=== PATIENT | male | born 1945 | race Caucasian/White ===

== ENCOUNTER 2019-04-10 09:43 | Day surgery (SDC) | payer OTHER | END 2019-04-10 22:37 | disposition home or self-care (01) | LOC: US 09:43 | DX: J90 Pleural effusion, not elsewhere classified (principal); C34.90 Malignant neoplasm of unspecified part of unspecified bronchus or lung | CPT/HCPCS: 32555; 71045 ==

== ENCOUNTER 2019-04-24 11:03 | Emergency (ER) | payer OTHER ==
[~2019-04-24] VITALS: Ht 180.3 cm; Wt 78.9 kg
[2019-04-24] MEDS ORDERED: ALBU90OI INH (11:24)
[2019-04-24] MEDS ORDERED: FINA5 PO (11:25)
[2019-04-24] MEDS ORDERED: GABA100 PO ×2 (11:25)
[2019-04-24] MEDS ORDERED: THERA1 EACH PO (11:26)
[2019-04-24] MEDS ORDERED: LISI5 PO (11:26)
[2019-04-24] MEDS ORDERED: METF500 PO (11:27)
[2019-04-24] MEDS ORDERED: STRIVERDI RESPIM4 GM INH (11:27)
[2019-04-24] MEDS ORDERED: TAMS.4ER PO (11:27)
[2019-04-24] MEDS ORDERED: TRAZ100 PO (11:28)
--- NOTE | 2019-04-24 19:22 | NUR ---
Called to meet with patient in ER. Pt From [place] with increased shortness of breath. Review with physicians and staff plan of care. Dr Galarza met with patient and his and carefully reviewed his needs. Met with patient and his . They reviewed that he is now getting his primary care at the [place]. He is recieving treatment from Doctor Mckeon. Plan is to continue care as he can tolerate. Review of symptoms. Pt denies headaches complains of great fatigue. He is not coughing with foof but swallows carefully due to fatiue and dyspnea. He states he has been wearing his wifes oxygen. pt has no appetite and in the past few days had had minimum intake and out put. Pt having difficulty voiding. History of prostate disease. He has obtained some catheters from his neighbor and has been cathing himself as needed. he dinies loose stools and states some mild constipation. He is able to ambulate but mostly stays in his wheelchair. He denies falls or balance issues some mild dizziness. Spoke with healthcare interpreter about oygen. They contacted regina. Spoke with Dr Gómez office. They can see patient tomorrow and do oxygen study. [facility] called and information sent. Requested home health order for catheter managment and disease managemet. Notified healthcare interpreter that it jaylan have to come from [place] care team. Pt states heis 20% service connected for hearing loss. Reviewed safety strategies with patient and his . Review strategies for tolearting intake. They are agreeable to home health and do not have preferance of company. Reviewed safety and fall precautions and when to call for help. Sopportiv conversation with his who is exhausted and distraught. Gave them our office number for support. Will follow up on orders.
--- NOTE | 2019-04-25 15:42 | NUR ---
follow up Mr. Liu made his oncology appointment. Follow up with care managers home health ordered. [facility] called last evening will make contact for oxygen care if needed.
== END 2019-04-24 17:10 | disposition home or self-care (01) ==
LOC: ER 11:03
DX: J90 Pleural effusion, not elsewhere classified (principal); C34.90 Malignant neoplasm of unspecified part of unspecified bronchus or lung; R00.0 Tachycardia, unspecified; E11.9 Type 2 diabetes mellitus without complications; F32.9 Major depressive disorder, single episode, unspecified; F03.90 Unspecified dementia, unspecified severity, without behavioral disturbance, psychotic disturbance, mood disturbance, and anxiety; J44.9 Chronic obstructive pulmonary disease, unspecified; Z87.891 Personal history of nicotine dependence; Z86.73 Personal history of transient ischemic attack (TIA), and cerebral infarction without residual deficits; Z88.8 Allergy status to other drugs, medicaments and biological substances; Z79.84 Long term (current) use of oral hypoglycemic drugs; Z79.899 Other long term (current) drug therapy
CPT/HCPCS: 32555; 71045; 96360; 99285-25; J7030

== ENCOUNTER 2019-05-03 14:54 | Day surgery (SDC) | payer OTHER ==
[~2019-05-03 14:54] MED LIST: ALBU90OI INH; FINA5 PO; GABA100 PO; LISI5 PO; METF500 PO; STRIVERDI RESPIM4 GM INH; TAMS.4ER PO; THERA1 EACH PO; TRAZ100 PO
== END 2019-05-04 00:07 | disposition home or self-care (01) ==
LOC: US 14:54
DX: C34.11 Malignant neoplasm of upper lobe, right bronchus or lung (principal); J91.0 Malignant pleural effusion
CPT/HCPCS: 32555; 71045

== ENCOUNTER 2019-06-14 13:15 | Day surgery (SDC) | payer OTHER ==
[2019-06-14 14:13] LABS: BASOPHILS ABSOLUTE AUTO 0.08 K/mm3 (0.00-0.23); BASOPHILS PERCENT AUTO 0 % (0-2); EOSINOPHILS ABSOLUTE AUTO 0.04 K/mm3 (0.00-0.68); EOSINOPHILS PERCENT AUTO 0 % (0-6); Hematocrit 25.2 % (37.0-53.0); Hemoglobin 7.9 g/dL (13.5-17.5); IMMATURE GRAN ABSOLUTE AUTO 0.74 K/mm3 (0.00-0.10); IMMATURE GRAN PERCENT AUTO 4 % (0-1); LYMPHOCYTES ABSOLUTE AUTO 0.86 K/mm3 (0.84-5.20); LYMPHOCYTES PERCENT AUTO 5 % (21-46); MONOCYTES ABSOLUTE AUTO 1.71 K/mm3 (0.16-1.47); MONOCYTES PERCENT AUTO 9 % (4-13); Mean Corpuscular HGB 29.6 pg (26.0-34.0); Mean Corpuscular HGB Conc 31.3 g/dL (31.5-36.5); Mean Corpuscular Volume 94 fL (80-100); Mean Platelet Volume 9.5 fL (9.1-12.4); NEUTROPHILS PERCENT AUTO 82 % (41-73); Platelet Count 178 K/mm3 (150-400); RDW Standard Deviation 49.2 fL (35.1-46.3); Red Blood Cell Count 2.67 M/mm3 (4.30-5.90); White Blood Cell Count 19.13 K/mm3 (4.00-11.30)
[2019-06-14 14:25] LABS: International Normalized Ratio 1.03; Prothrombin Time Results 10.9 Sec (9.7-11.5)
[2019-06-14 14:28] LABS: Alanine Aminotransfer (ALT/SGP 16 U/L (12-78); Albumin, Blood 2.8 g/dL (3.4-5.0); Albumin/Globulin Ratio 0.6 (0.8-1.8); Alk Phos 218 U/L (50-136); Anion Gap 0 mmol/L (6-16); Aspartate Aminotrans (AST/SGOT 25 U/L (12-37); Bilirubin, Total 0.3 mg/dL (0.1-1.0); Blood Urea Nitrogen 11 mg/dL (8-24); CO2, Blood 39 mmol/L (21-32); Calcium, Blood 8.9 mg/dL (8.5-10.1); Chloride, Blood 96 mmol/L (98-108); Creatinine, Blood 0.69 mg/dL (0.60-1.20); Globulin, Blood 4.6 g/dL (2.2-4.0); Glomerular Filtration Rate >60 (60-); Glucose, Blood 114 mg/dL (70-99); Potassium, Blood 5.1 mmol/L (3.5-5.5); Sodium, Blood 135 mmol/L (136-145); Total Protein, Blood 7.4 g/dL (6.4-8.2)
== END 2019-06-14 23:38 | disposition home or self-care (01) ==
LOC: US 13:15 → LAB 13:15 → US 15:00
PROVIDERS: Internal Medicine Hematology & Oncology
DX: J90 Pleural effusion, not elsewhere classified (principal); C34.11 Malignant neoplasm of upper lobe, right bronchus or lung; Z79.01 Long term (current) use of anticoagulants
CPT/HCPCS: 32555; 36415; 71045; 80053; 85025; 85610; 85730

== ENCOUNTER 2019-07-03 14:19 | Emergency (ER) | payer OTHER ==
[~2019-07-03] VITALS: Ht 180.3 cm; Wt 74.4 kg
[2019-07-03] MEDS ORDERED: LASIX (14:36)
[2019-07-03] MEDS ORDERED: POTASSIUM (14:36)
== END 2019-07-03 17:05 | disposition home or self-care (01) ==
LOC: ER 14:19
DX: J90 Pleural effusion, not elsewhere classified (principal); Z88.8 Allergy status to other drugs, medicaments and biological substances; Z79.899 Other long term (current) drug therapy; Z79.84 Long term (current) use of oral hypoglycemic drugs; I10 Essential (primary) hypertension; E78.00 Pure hypercholesterolemia, unspecified; F32.9 Major depressive disorder, single episode, unspecified; F03.90 Unspecified dementia, unspecified severity, without behavioral disturbance, psychotic disturbance, mood disturbance, and anxiety; Z87.891 Personal history of nicotine dependence
CPT/HCPCS: 32555; 71045; 71046; 99284-25

== ENCOUNTER 2019-07-16 11:33 | Emergency (ER) | payer OTHER ==
[~2019-07-16] VITALS: Ht 180.3 cm; Wt 73.5 kg
[~2019-07-16 11:33] MED LIST changes: +LASIX; +POTASSIUM
== END 2019-07-16 17:10 | disposition home or self-care (01) ==
LOC: ER 11:33
DX: J90 Pleural effusion, not elsewhere classified (principal); K76.9 Liver disease, unspecified; Z85.118 Personal history of other malignant neoplasm of bronchus and lung; E11.9 Type 2 diabetes mellitus without complications; I10 Essential (primary) hypertension; Z87.891 Personal history of nicotine dependence; Z88.8 Allergy status to other drugs, medicaments and biological substances; Z79.899 Other long term (current) drug therapy; Z79.84 Long term (current) use of oral hypoglycemic drugs
CPT/HCPCS: 32555; 71045; 99284-25

== ENCOUNTER 2019-08-02 06:24 | Day surgery (SDC) | payer OTHER ==
[~2019-08-02] VITALS: Ht 180.3 cm; Wt 74.8 kg
[~2019-08-02 06:24] MED LIST changes: +FURO20 PO; +Inderal 20 mg T20 MG PO; +MELA3 PO; +Mucinex600 MG PO; +Ropinirole HCl1 MG PO
--- NOTE | 2019-08-02 06:47 | NUR ---
INTO SDS SIGNIFICANT OTHER HELPING WITH GETTING UNDRESSED AND INTO BED WITH RN AVAIABLE TO HELP IF NEEDED
--- NOTE | 2019-08-02 07:59 | NUR ---
EKG DONE BY RN AND PLACED ON CHART
--- NOTE | 2019-08-02 09:27 | NUR ---
08/02/19 0927 Lamont Jonas 15 ML OF LICOCAINE 1% INJECTED AT SURGICAL SITE. 800 ML FLUID REMOVED DURING PROCEDURE.
--- NOTE | 2019-08-02 12:06 | NUR ---
Patient up to Ambulate WITH STAND BY ASSIST. Discharge instructions reviewed with patient AND .Patient verbalizes understanding. Copy given to patient to take home. PT REPORTS NO HOME HEALTH FOR PLEUREX CATHETER ARRANGED. NO PATIENT EDUCATION DONE YET. CALLED PALLIATIVE CARE NURSE FOR CONSULT AND EDUCATION. DISCUSSED NO HOME HEALTH WITH DR. NOBLES. DECLINES TO ORDER HOME HEALTH OR TREATMENT FOR PT. PALLIATIVE CARE NURSE REPORTS SHE WILL FOLLOW UP ON MONDAY TO ARRANGE HOME HEALTH WITH PCP. DISCHARGED HOME IN PERSONAL W/C AND VEHICLE WITH RIDE HOME ON PERSONAL OXYGEN TANK.
--- NOTE | 2019-08-02 12:28 | NUR ---
Met with Austin and Roxanne in day surgery room 9 this morning. Austin reports he has lung cancer and Dr. Mckeon referred him to see Dr. Camp for pleurX placement. They both state they have not had any pleurX drain teaching yet. Austin is receptive, however Roxanne is very opposed to learning how to drain the pleurX. She shows signs of caregiver stress and reports that she also has cancer in her lungs. She is fearful of the pleurX drain. PleurX drain teaching completed. Verbally walked them through the draining, pt had fluid removed this morning when drain was placed. Gauze under tegaderm dsg is C, D&I at this time. Starter kit will be sent home with them. Encouraged them to look at DVD for a demonstration of how to drain. They are requesting Alison for assistance with managing the drain. They are requesting to have help in the home. 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 He reports he has increasing weakness and c/o SOB with minimal activity. He reports when he gets up to go to the bathroom he has to sit and recover for 5-10 minutes. He wears O2 at 2 l/min at home. It is just the two of them at home and Austin reports he isn't able to do much around the house anymore to help out. He has a walker, a motorized wheel chair and home O2. [facility] [place]. Spoke with Danita Her CM. Danita stated that she will contact Max at the [facility] for a screening to see if they qualify for some transportation logistics internship assistance. Austin states that he will follow up with the [facility] next week to also request services. Faxed [facility] orders for supplies. Attempted to LM for Dr. Mckeon's office to order HH on Monday as their office is closed for the holiday weekend. Unable to leave a message as the office VM was full. [facility]. Austin states he feels confident in going home and knows that HH will need to be ordered by Dr. Mckeon on Monday. Austin states he normally goes about 2 weeks in between recent thoracentesis procedures. He knows to call 911 or come to the ER if he has problems prior to HH getting established. Plan is to go home today with pleurX starter kit. HH to follow.
== END 2019-08-02 12:00 | disposition home or self-care (01) ==
LOC: ORSCMMR 06:24 → ORD 08:30 → ORSCMMR 12:00
PROVIDERS: Surgery
PROC: 0WH933Z Insertion of Infusion Device into Right Pleural Cavity, Percutaneous Approach (ICD-10-PCS; principal; 2019-08-02 08:30)
DX: J91.0 Malignant pleural effusion (principal); C34.11 Malignant neoplasm of upper lobe, right bronchus or lung; I10 Essential (primary) hypertension; E11.9 Type 2 diabetes mellitus without complications; Z87.891 Personal history of nicotine dependence; Z79.84 Long term (current) use of oral hypoglycemic drugs; Z79.899 Other long term (current) drug therapy
CPT/HCPCS: 82947; 93005; 93010; C1729; J0690; J2250; J2704; J3010; J7120

== ENCOUNTER 2019-11-19 20:59 | Inpatient (IN) | payer OTHER ==
[~2019-11-19] VITALS: Ht 170.2 cm; Wt 71.6 kg
[2019-11-19 22:15] LABS: BASOPHILS ABSOLUTE AUTO 0.08 K/mm3 (0.00-0.23); BASOPHILS PERCENT AUTO 0 % (0-2); EOSINOPHILS ABSOLUTE AUTO 0.18 K/mm3 (0.00-0.68); EOSINOPHILS PERCENT AUTO 1 % (0-6); Hematocrit 35.7 % (37.0-53.0); IMMATURE GRAN ABSOLUTE AUTO 0.32 K/mm3 (0.00-0.10); IMMATURE GRAN PERCENT AUTO 1 % (0-1); LYMPHOCYTES ABSOLUTE AUTO 0.68 K/mm3 (0.84-5.20); LYMPHOCYTES PERCENT AUTO 3 % (21-46); MONOCYTES ABSOLUTE AUTO 2.32 K/mm3 (0.16-1.47); MONOCYTES PERCENT AUTO 10 % (4-13); Mean Corpuscular HGB 27.3 pg (26.0-34.0); Mean Corpuscular HGB Conc 30.8 g/dL (31.5-36.5); Mean Corpuscular Volume 89 fL (80-100); Mean Platelet Volume 9.4 fL (9.1-12.4); NEUTROPHILS ABSOLUTE AUTO 18.66 K/mm3 (1.96-9.15); NEUTROPHILS PERCENT AUTO 84 % (41-73); Platelet Count 373 K/mm3 (150-400); RDW Coefficient Variation 14.8 % (11.7-14.2); RDW Standard Deviation 48.3 fL (35.1-46.3); Red Blood Cell Count 4.03 M/mm3 (4.30-5.90); White Blood Cell Count 22.24 K/mm3 (4.00-11.30)
[2019-11-19 22:32] LABS: Alanine Aminotransfer (ALT/SGP 21 U/L (12-78); Albumin, Blood 2.1 g/dL (3.4-5.0); Albumin/Globulin Ratio 0.4 (0.8-1.8); Alk Phos 198 U/L (50-136); Anion Gap 4 mmol/L (6-16); Aspartate Aminotrans (AST/SGOT 14 U/L (12-37); Bilirubin, Total 0.4 mg/dL (0.1-1.0); Blood Urea Nitrogen 26 mg/dL (8-24); Bun/Creatinine Ratio 27.7 (12.0-20.0); CO2, Blood 29 mmol/L (21-32); Calcium, Blood 9.4 mg/dL (8.5-10.1); Chloride, Blood 101 mmol/L (98-108); Creatinine, Blood 0.94 mg/dL (0.60-1.20); Globulin, Blood 5.6 g/dL (2.2-4.0); Glomerular Filtration Rate >60 (60-); Glucose, Blood 217 mg/dL (70-99); Potassium, Blood 4.6 mmol/L (3.5-5.5); Sodium, Blood 134 mmol/L (136-145); Total Protein, Blood 7.7 g/dL (6.4-8.2)
[2019-11-20 00:12] LABS: Magnesium, Blood 1.7 mg/dL (1.6-2.4); Phosphorus, Blood 3.7 mg/dL (2.5-4.9)
[2019-11-20] MEDS ORDERED: LISI5 (00:22)
[2019-11-20 03:17] LABS: Adenovirus Not Detected (NOT DETECT); Bordetella pertussis Not Detected (NOT DETECT); Chlamydophila pneumoniae Not Detected (NOT DETECT); Coronavirus 229E Not Detected (NOT DETECT); Coronavirus HKU1 Not Detected (NOT DETECT); Coronavirus NL63 Not Detected (NOT DETECT); Coronavirus OC43 Not Detected (NOT DETECT); Human Metapneumovirus Not Detected (NOT DETECT); Human Rhinovirus/Enterovirus Not Detected (NOT DETECT); Influenza A/2009-H1 Not Detected (NOT DETECT); Influenza A/H1 Not Detected (NOT DETECT); Influenza A/H3 Not Detected (NOT DETECT); Influenza B Not Detected (NOT DETECT); Mycoplasma pneumoniae Not Detected (NOT DETECT); Parainfluenza Virus 1 Not Detected (NOT DETECT); Parainfluenza Virus 2 Not Detected (NOT DETECT); Parainfluenza Virus 3 Not Detected (NOT DETECT); Parainfluenza Virus 4 Not Detected (NOT DETECT); Respiratory Syncytial Virus Not Detected (NOT DETECT)
[2019-11-20 03:59] LABS: BASOPHILS ABSOLUTE AUTO 0.09 K/mm3 (0.00-0.23); BASOPHILS PERCENT AUTO 0 % (0-2); EOSINOPHILS ABSOLUTE AUTO 0.32 K/mm3 (0.00-0.68); EOSINOPHILS PERCENT AUTO 1 % (0-6); Hemoglobin 11.4 g/dL (13.5-17.5); IMMATURE GRAN ABSOLUTE AUTO 0.33 K/mm3 (0.00-0.10); IMMATURE GRAN PERCENT AUTO 2 % (0-1); LYMPHOCYTES ABSOLUTE AUTO 0.68 K/mm3 (0.84-5.20); LYMPHOCYTES PERCENT AUTO 3 % (21-46); MONOCYTES ABSOLUTE AUTO 1.74 K/mm3 (0.16-1.47); MONOCYTES PERCENT AUTO 8 % (4-13); Mean Corpuscular HGB 26.6 pg (26.0-34.0); Mean Corpuscular Volume 89 fL (80-100); Mean Platelet Volume 9.1 fL (9.1-12.4); NEUTROPHILS ABSOLUTE AUTO 18.98 K/mm3 (1.96-9.15); NEUTROPHILS PERCENT AUTO 86 % (41-73); Platelet Count 397 K/mm3 (150-400); RDW Standard Deviation 49.1 fL (35.1-46.3); Red Blood Cell Count 4.29 M/mm3 (4.30-5.90); White Blood Cell Count 22.14 K/mm3 (4.00-11.30)
[2019-11-20 04:18] LABS: Alanine Aminotransfer (ALT/SGP 18 U/L (12-78); Albumin, Blood 2.1 g/dL (3.4-5.0); Albumin/Globulin Ratio 0.4 (0.8-1.8); Alk Phos 191 U/L (50-136); Anion Gap 5 mmol/L (6-16); Aspartate Aminotrans (AST/SGOT 16 U/L (12-37); Bilirubin, Total 0.5 mg/dL (0.1-1.0); Blood Urea Nitrogen 24 mg/dL (8-24); Bun/Creatinine Ratio 26.9 (12.0-20.0); CO2, Blood 31 mmol/L (21-32); Calcium, Blood 9.6 mg/dL (8.5-10.1); Chloride, Blood 98 mmol/L (98-108); Creatinine, Blood 0.89 mg/dL (0.60-1.20); Globulin, Blood 5.7 g/dL (2.2-4.0); Glomerular Filtration Rate >60 (60-); Glucose, Blood 220 mg/dL (70-99); Potassium, Blood 4.4 mmol/L (3.5-5.5); Sodium, Blood 134 mmol/L (136-145); Total Protein, Blood 7.8 g/dL (6.4-8.2)
--- NOTE | 2019-11-20 05:11 | NUR ---
SHIFT SUMMARY PT ARRIVED FROM ER VIA STRETCHER; TRANSFERED SELF TO BED; A&O; DENIES CHEST PAIN; VSS; AFEBRILE; O2 SATS >93 ON 2L NC; LUNG SOUNDS DIM IN BASES; NO EDEMA NOTED; CHRONIC TRINH IN PLACE; GAUZE BANDAGE OVER R THORENTENSIS SITE; C/D; PT HAD EPISODE OF SWEATS AND STATED HE WAS HOT; WASH RAG BROUGHT TO PT; NO FEVER NOTED; PT DENIES NEEDS AT THIS TIME; CALL LIGHT IN REACH; BED IN LOWEST POSITION; WILL CONTINUE TO MONITOR CLOSELY UNTIL HAND OFF TO DAY SHIFT RN.
--- NOTE | 2019-11-20 08:37 | NUR ---
AM NOTE... ASSUMED CARE OF PT APROX 0700. PT IS A&OX4 PT WAS ADMITTED FOR RESP FAILURE. PT'S VS STABLE AT THIS TIME HR IS IN THE 100'S-120'S PT DENIES CHEST PAIN/PRESSURE N/V OR SOB. PLURIX DRAIN DRESSING IS C/D/I. L/S CLEAR IN THE UPPER LOBE, DIM/COARSE IN THE LOWER LOBES. PT IS ON 2L NC WHICH IS BASELINE. BT PRESENT AND NORMOACTIVE ABD SOFT AND NONTENDER TO PALP. TRINH IS PATENT AND DRAINING TO GRAVITY. [facility]H [facility] CHRONIC [facility]. CALL LIGHT IN REACH WILL CONTINUE TO MONIOR
--- NOTE | 2019-11-20 12:03 | NUR ---
PT UPDATE... PT'S S/O BROUGHT IN THE PT'S LOWER DENTURES WHILE THE CNAS WERE JUST FINISHING A BEDBATH FOR THIS PT. PT'S APPARENTLY PLACED THE PT'S LOWER DENTURES WRAPPED IN PAPER TOWEL ON THE BEDSIDE TABLE WITH THE BEDBATH SUPPLIES. PER THE CNAS THE S/O DID NOT NOTIFY THEM THAT THERE WERE DENTURES IN THE PAPER TOWEL AND AT THIS TIME THE DENTURES CANNOT BE FOUND EVEN AFTER EVERY ATTEMPT AT LOCATING THEM. THE PT AND S/O WERE ASKED TO PLEASE NOTIFY STAFF OF ANY PERSONAL ITEMS BEING BROUGHT INTO THE ROOM. CHARGE NURSE IS AWARE. WILL CONTINUE TO MOIKANG,
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
--- NOTE | 2019-11-20 18:15 | NUR ---
SHIFT SUMMARY... NO ACUTE NEGATIVE CHANGES NOTED THIS SHIFT. PT'S VS HAVE BEEN STABLE. PT HAS BEEN ON BASELINE 2L NC WITH O2 SATS >90%. SPUTUM SAMPLE SENT TO THE LAB PER ORDERS. PT'S AT THE BEDSIDE THIS AM. PT'S TRINH IS PATENT AND DRAINING TANJA URINE TO GRAVITY. CALL LIGHT IN REACH WILL CONTINUE TO MONITOR UNTIL REPORT IS GIVEN TO ONCOMING RN.
[2019-11-21 04:08] LABS: BASOPHILS ABSOLUTE AUTO 0.06 K/mm3 (0.00-0.23); BASOPHILS PERCENT AUTO 0 % (0-2); EOSINOPHILS PERCENT AUTO 0 % (0-6); Hematocrit 32.7 % (37.0-53.0); Hemoglobin 10.1 g/dL (13.5-17.5); IMMATURE GRAN ABSOLUTE AUTO 0.48 K/mm3 (0.00-0.10); IMMATURE GRAN PERCENT AUTO 3 % (0-1); LYMPHOCYTES ABSOLUTE AUTO 0.51 K/mm3 (0.84-5.20); LYMPHOCYTES PERCENT AUTO 3 % (21-46); MONOCYTES ABSOLUTE AUTO 0.59 K/mm3 (0.16-1.47); MONOCYTES PERCENT AUTO 3 % (4-13); Mean Corpuscular HGB 27.4 pg (26.0-34.0); Mean Corpuscular HGB Conc 30.9 g/dL (31.5-36.5); Mean Corpuscular Volume 89 fL (80-100); Mean Platelet Volume 9.1 fL (9.1-12.4); NEUTROPHILS ABSOLUTE AUTO 17.26 K/mm3 (1.96-9.15); NEUTROPHILS PERCENT AUTO 91 % (41-73); Platelet Count 379 K/mm3 (150-400); RDW Standard Deviation 48.6 fL (35.1-46.3); Red Blood Cell Count 3.69 M/mm3 (4.30-5.90)
[2019-11-21 04:30] LABS: Alanine Aminotransfer (ALT/SGP 12 U/L (12-78); Albumin, Blood 1.7 g/dL (3.4-5.0); Albumin/Globulin Ratio 0.3 (0.8-1.8); Alk Phos 157 U/L (50-136); Anion Gap 6 mmol/L (6-16); Aspartate Aminotrans (AST/SGOT 9 U/L (12-37); Bilirubin, Total 0.4 mg/dL (0.1-1.0); Blood Urea Nitrogen 22 mg/dL (8-24); Bun/Creatinine Ratio 30.3 (12.0-20.0); CO2, Blood 26 mmol/L (21-32); Calcium, Blood 8.9 mg/dL (8.5-10.1); Chloride, Blood 103 mmol/L (98-108); Creatinine, Blood 0.73 mg/dL (0.60-1.20); Globulin, Blood 5.2 g/dL (2.2-4.0); Glomerular Filtration Rate >60 (60-); Glucose, Blood 259 mg/dL (70-99); Sodium, Blood 135 mmol/L (136-145); Total Protein, Blood 6.9 g/dL (6.4-8.2)
--- NOTE | 2019-11-21 05:47 | NUR ---
SHIFT SUMMARY PT A&O X4. VSS. SPO2 > 92% ON 2L NC. MONITOR SHOWS SR, HR 80's. PT AWOKE FROM SLEEP @ APPROX 0200 DRENCHED IN SWEAT, REQUIRING PARTIAL SPONGE BATH, GOWN CHANGE, AND LINEN CHANGE. PT DENIED ANY DISCOMFORT OR CHANGE IN SYMPTOMS. TEMP NORMAL AT TIME & VSS. NO FURHER EVENTS. TRINH CATH PATENT AND DRAINING DARK YELLOW URINE. PT SPEAKING OF T/O CARE ROUNDING ENCOUNTERS, REPORTING READINESS TO PASS WHEN HIS TIME COMES & SPEAKING OF WHAT MAY HAPPEN IF THERE IS LIFE AFTER . PT HAD ELIGIBILITY SERVICES REPRESENTATIVE WRITE DOWN A REQUEST TO GIVE TO HIS SPOUSE "IN CASE I DON'T MAKE IT." NOTE PLACED ON WHITE BOARD IN RM TO BE GIVEN TO SPOUSE WHEN ARRIVES. WILL CONTINUE TO MONITOR AND PROVIDE CARE UNTIL REPORT OFF TO DAY SHIFT RN.
--- NOTE | 2019-11-21 10:30 | NUR ---
PT SITTING UP IN A CHAIR, EATING BREAKFAST, V.S. STABLE, A/OX3, PLEASANT AND COOPERATIVE WITH CARE, FOLLOWS COMMANDS WELL, DENIES ANY COMPLAINTS THIS AM, STATES HE'S DOING PRETTY GOOD. LUNGS ARE CLEAR, DIM IN BASES, RESP EVEN AND UNLABORED, NO COUGH NOTED AT THIS TIME, IS CURRENTLY ON 2 LITERS 02 VIA N/C, IS HOME O2 DEP. ON 2LITERS, HRR, TELE IN PLACE RUNNING SR PER MONITOR, SEE STRIP, NO EDEMA NOTED, PPP+1, CAP REFILL <3SEC, VS STABLE, AFEBRILE, IV SITE IS CLEAR AND PATENT, BTX4, ABD FLAT SOFT NONTENDER, VOIDS WITHOUT DIFF, SKIN C/W/D, MAEW, PIPE, CALL LIGHT IN REACH.
--- NOTE | 2019-11-21 13:36 | NUR ---
PT WAS IN TO VISIT, PT DOING OK, NO COMPLAINTS, V.S. STABLE. CALL LIGHT IN REACH.
--- NOTE | 2019-11-21 14:36 | NUR ---
PT HAS BEEN TRANSFERED TO MEDICAL FLOOR, REPORT GIVEN TO CALLIE EARLY, PT TAKEN TO MEDICAL VIA WHEELCHAIR WITH WALL CLEANER IN ATTENDENCE.
--- NOTE | 2019-11-21 14:52 | NUR ---
RECIEVED REPORT FROM RN IMAGINGSHARATH DAVIS @ 0930. PATIENT ARIVED TO ROOM 342 AT APPROX 1430 AND WAS SETTLED INTO HIS BED AND GIVEN HIS CALL LIGHT.
--- NOTE | 2019-11-21 16:36 | NUR ---
PATIENT IS VERY PLEASANT AND COOPERATIVE. CALLS FOR STAFF ASSIST NEEDED. NO ACUTE CHANGED NOTED DURING THIS SHIFT. WILL CONTINUE TO MONITOR AND PROVIDE CARE NEEDED.
[2019-11-22 05:21] LABS: BASOPHILS ABSOLUTE AUTO 0.03 K/mm3 (0.00-0.23); BASOPHILS PERCENT AUTO 0 % (0-2); EOSINOPHILS ABSOLUTE AUTO 0.02 K/mm3 (0.00-0.68); EOSINOPHILS PERCENT AUTO 0 % (0-6); Hematocrit 31.6 % (37.0-53.0); Hemoglobin 9.7 g/dL (13.5-17.5); IMMATURE GRAN ABSOLUTE AUTO 0.24 K/mm3 (0.00-0.10); IMMATURE GRAN PERCENT AUTO 2 % (0-1); LYMPHOCYTES ABSOLUTE AUTO 0.74 K/mm3 (0.84-5.20); LYMPHOCYTES PERCENT AUTO 6 % (21-46); MONOCYTES ABSOLUTE AUTO 0.85 K/mm3 (0.16-1.47); MONOCYTES PERCENT AUTO 6 % (4-13); Mean Corpuscular HGB 27.2 pg (26.0-34.0); Mean Corpuscular HGB Conc 30.7 g/dL (31.5-36.5); Mean Corpuscular Volume 89 fL (80-100); Mean Platelet Volume 9.1 fL (9.1-12.4); NEUTROPHILS ABSOLUTE AUTO 11.68 K/mm3 (1.96-9.15); NEUTROPHILS PERCENT AUTO 86 % (41-73); Platelet Count 440 K/mm3 (150-400); RDW Coefficient Variation 14.7 % (11.7-14.2); RDW Standard Deviation 48.9 fL (35.1-46.3); Red Blood Cell Count 3.57 M/mm3 (4.30-5.90); White Blood Cell Count 13.56 K/mm3 (4.00-11.30)
[2019-11-22 05:39] LABS: Anion Gap 5 mmol/L (6-16); Blood Urea Nitrogen 31 mg/dL (8-24); Bun/Creatinine Ratio 42.3 (12.0-20.0); CO2, Blood 27 mmol/L (21-32); Calcium, Blood 8.9 mg/dL (8.5-10.1); Chloride, Blood 104 mmol/L (98-108); Creatinine, Blood 0.73 mg/dL (0.60-1.20); Glomerular Filtration Rate >60 (60-); Glucose, Blood 252 mg/dL (70-99); Potassium, Blood 4.7 mmol/L (3.5-5.5); Sodium, Blood 136 mmol/L (136-145)
--- NOTE | 2019-11-22 11:35 | NUR ---
DR YARBROUGH HERE TO SEE PT.
--- NOTE | 2019-11-22 14:34 | NUR ---
REPORT BEEN GIVEN TO Maegan WHO IS TAKING OVER CARE AT THIS TIME.
--- NOTE | 2019-11-22 15:31 | NUR ---
ASSUMED CARE OF PT AT ABOUT 1415
--- NOTE | 2019-11-22 17:21 | NUR ---
PALIATIVE CARE RN, AGATA IN ROOM AT THIS TIME DOING PLUREX DRAIN DRESSING CHANGE.
--- NOTE | 2019-11-22 18:34 | NUR ---
Called to meet with patient and assess pleurex drain. Pt alert and oriented, labored breathing with accessory muscle use. very coarse productive cough. Sats trending 89 to 92% coarse expritory lung sounds grater on left. minimal sound to lower right muffled course sounds. pleures drain lower right front chest. Right chest wall sunken and left chest wall better excursion. Pleruex drain dressing soaked, some crust around the site stitch still in place. yellow serous drainage from around site. cap was intact. track from tunnelled site red and firm along rib painfull to touch. Pt relays they were getting large drains then last drain was barely 150cc. then no drainage. Site cleaned and disnfected. pt drained. Difficult drain. Fluid thick lots of fibrin and purently fluid. Pt drained slowly had to turn him and make him cough several times. took thiry minutes to drain go 270 out. pt sates maintained. Lung sounds improved in rith lower bases. pt states easier to breath. Pt recely tatooed for rediation. He relayed he is thinking he will not do radiation. He will talk with physician one more time. He is interested in hospice. We had a lengthy conversation about hospice and quality of life and symptoms. He does not like to talke pain medication. He relayed a long hitory of alcolol abuse for fears narcotics. We reviewed chest wall pain and burden of ventilation and coughing. Suggested a childrens dose of tylenol so he does not get to faitied to cough. He was amedable to trying. [facility] notified for paln of care information and orders.he was draining twice aweek until drainage slowed down. Will suggest surgical consult will send fluids for culture. suggest twice a week no more than 500cc per drain. Theraputic time with patient reminising about his career. 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 He has had a lot of ups and downs in his career. will continue to follow for tratput visit, symptom management and palliative therapy and hospice plan.
--- NOTE | 2019-11-22 19:44 | NUR ---
SUMMARY: SEE PREVIOUS NOTE. DR. YARBROUGH MADE AWARE OF DRAINAGE AROUND PLUEREX DRAIN SITE. SEE ALSO PALLIATIVE CARE RN NOTES. SURGICAL CONSULT CALLED AND CULTURES SENT. DRAIN SITE IS CDI AT THIS TIME, PICTURES TO BE DEVELOPED AND PUT IN CHART. OTHERWISE NO ACUTE CHANGE FROM PT. PT IS A/O, VSS. REPORT PASSED TO NOC RN.
[2019-11-23 05:20] LABS: BASOPHILS ABSOLUTE AUTO 0.03 K/mm3 (0.00-0.23); BASOPHILS PERCENT AUTO 0 % (0-2); EOSINOPHILS ABSOLUTE AUTO 0.04 K/mm3 (0.00-0.68); EOSINOPHILS PERCENT AUTO 0 % (0-6); Hemoglobin 10.1 g/dL (13.5-17.5); IMMATURE GRAN PERCENT AUTO 2 % (0-1); LYMPHOCYTES ABSOLUTE AUTO 0.72 K/mm3 (0.84-5.20); LYMPHOCYTES PERCENT AUTO 7 % (21-46); MONOCYTES ABSOLUTE AUTO 0.82 K/mm3 (0.16-1.47); MONOCYTES PERCENT AUTO 8 % (4-13); Mean Corpuscular HGB 27.2 pg (26.0-34.0); Mean Corpuscular HGB Conc 30.6 g/dL (31.5-36.5); Mean Corpuscular Volume 89 fL (80-100); Mean Platelet Volume 8.9 fL (9.1-12.4); NEUTROPHILS ABSOLUTE AUTO 8.78 K/mm3 (1.96-9.15); NEUTROPHILS PERCENT AUTO 83 % (41-73); Platelet Count 433 K/mm3 (150-400); RDW Coefficient Variation 14.6 % (11.7-14.2); RDW Standard Deviation 47.9 fL (35.1-46.3); Red Blood Cell Count 3.72 M/mm3 (4.30-5.90); White Blood Cell Count 10.59 K/mm3 (4.00-11.30)
[2019-11-23 05:40] LABS: Anion Gap 4 mmol/L (6-16); Blood Urea Nitrogen 23 mg/dL (8-24); Bun/Creatinine Ratio 34.8 (12.0-20.0); CO2, Blood 28 mmol/L (21-32); Calcium, Blood 8.9 mg/dL (8.5-10.1); Chloride, Blood 106 mmol/L (98-108); Creatinine, Blood 0.66 mg/dL (0.60-1.20); Glomerular Filtration Rate >60 (60-); Glucose, Blood 164 mg/dL (70-99); Potassium, Blood 4.7 mmol/L (3.5-5.5); Sodium, Blood 138 mmol/L (136-145); Vancomycin, Random 9.3 ug/mL
--- NOTE | 2019-11-23 07:27 | NUR ---
SHIFT SUMMARY PATIENT ALERT AND ORIENTED. WAS ABLE TO SLEEP WELL OVERNIGHT. PICTURES OF DRAIN SITE PLACED IN CHART. IV PATENT AND INFUSING WITH NORMAL SALINE AT 75 ML/HR. BED IN LOWEST POSITION WITH WHEELS LOCKED. CALL LIGHT WITHIN REACH. REPORT GIVEN TO ONCOMING RN.
--- NOTE | 2019-11-23 13:41 | NUR ---
PROVIDER CONSULT DR. NAIR CONSULTED, DRESSING CHANGED BY DR. NAIR, CT ORDERED
--- NOTE | 2019-11-23 15:25 | NUR ---
ASSUMED CARE OF PATIENT FROM CARLA EARLY AT 1300. PATIENTS ONLY COMPLAINT SINCE IS REQUEST FOR BOWEL CARE. MIRALAX PROVIDED. PATIENT HAD BM. SITTING IN HIS CHAIR DENYING NEEDS
--- NOTE | 2019-11-23 16:40 | NUR ---
SHIFT SUMMARY NO ACUTE CHANGES SINCE ASSUMING CARE. PT HAD BOWEL CARE AND ABLE TO HAVE BM. PLEURX DRAIN DRAINED YESTERDAY. SITE LOOKS C/D/I TODAY. DR NAIR SAW PATIENT TODAY AND DRSG CHANGED. CT DONE. VSS
--- NOTE | 2019-11-23 19:33 | NUR ---
theraputic visit with patient he is up in chair feels breathing is better. He is anxious to have a plan for his pleurx.
--- NOTE | 2019-11-24 04:39 | NUR ---
Rn summary: Patient is alert and oriented. He has a chronic downing catheter with clear yellow urine. Pt takes his pills without difficulty with water. Pt has a plurex drain to the rt side. Pt has denied any discomfort this shift. Pt watched TV until midnight then took 100 mg of trazadone. States he no longer takes 200mg. Patient has rested without difficulty. O2 is on at 2 liters. Lungs are diminished on the rt, absent in the rt base. left lung had squeek in the base. Heart tones are distant. Blood sugar was 216 at bedtime, pt had lantus insulin and wanted a snack. Call light in reach. Will continue to monitor.
[2019-11-24 06:40] LABS: Vancomycin, Random 10.3 ug/mL
--- NOTE | 2019-11-24 10:00 | NUR ---
PT IV INFILTRATED- IV NOT PAINFUL, ARMS WERE EQUAL PRIOR TO IV ABX BEING STARTED IVF ALREADY RUNNING. PT CALLED AND SAID HIS ARM BELT LIKE "A BUNCH OF BEE STINGS." STOPPED ABX INFUSION IMMEDIATELY, DC'D IV WRAPPED THE ARM ASSISTED THE PT TO BED ELEVATED THE EXTREMITY AND PLACED ICE PACK. CALLED PHA GEOVANY TO DETERMINE IF FURTHER INTERVENTION IS NEEDED, NO ADVERSE SIDE EFFECTS WERE FOUND, NO FURTHER INTERVANTION NEEDED AT THIS TIME. AUTO RADIATOR MECHANIC NOTIFIED DR YARBROUGH NOTIFIED.
--- NOTE | 2019-11-24 16:55 | NUR ---
pt sleeping well respiration slow and even will return may need drain tomorrow will see what hospice paln is.
--- NOTE | 2019-11-24 19:29 | NUR ---
SHIFT SUMMARY- PT ALERT AND ORIENTED 1PA TO THE BATHROOM. PT DENIES NEED FOR PAIN MEDICATON. TRINH IN PLACE PATENT AND DRAINING CLEAR YELLOW URINE. PT STATES THE TRINH IS CHRONIC FOR THE LAST 4 MONTHS. PLUREX DRAIN IN THE RIGHT CHEST APPEARS TO HAVE IMPROVED (PER PALLIATIVE CARE RN MAXIMILIAN Rico) PT IV INFILTRATED EARLIER TODAY (SEE NOTES). SWELLING HAS REDUCED BY HALF AND THE PT STATED THE PAIN IS GONE NOW. PT STATED THAT HE HAS DECIDED TO NOT RECIEVE THE RADIATION TREATMENTS FOR HIS STAGE 4 LUNG CANCER. PT REMAINS IN GOOD SPIRITS AT THIS TIME. NO S&S OF DISTRESS NOTED AT THIS TIME PT IN BED WITH THE CALL LIGHT IN REACH. SUCTION AT THE BEDSIDE.
--- NOTE | 2019-11-25 06:04 | NUR ---
SHIFT SUMMARY- PT. ASLEEP T/O MOST OF THE SHIFT, NO APPARENT DISTRESS NOTED. A&O, 1 ASSIST W/WALKER TO BATHROOM, CALLS APPROPRIATELY. PT. WITH STAGE 4 RT LUNG CA. DECLINES RADIATION AT THIS TIME. PLEURX TO RT LOWER CHEST DUE TO BE DRAINED TODAY, PALLIATIVE CONSULT IN PLACE. CHRONIC TRINH CATHETER PATENT AND DRAINING. DENIED ANY PAIN OR DISCOMFORT T/O THE NIGHT. VSS. PLAN FOR POSS D/C TO HOME ON HOSPICE. CALL LIGHT WITHIN REACH AND SIDE RAILS UP X2. WILL CONT TO MONITOR.
[2019-11-25] MEDS ORDERED: Doxycycline Mo100 M1 PO (15:12)
[2019-11-25] MEDS ORDERED: INSULANPEN SC (15:12)
--- NOTE | 2019-11-25 18:35 | NUR ---
DISCHARGE NOTE PT DISCHARGED HOME ON HOSPICE. PT'S SIGNIFICANT OTHER PICKED UP MEDICATIONS FROM [place] [facility] PRIOR TO DC. IV DC'D AND BELONGINGS RETURNED. PT EDUCATED ON ALL DISCHARGE INSTRUCTIONS, ALL QUESTIONS ANSWERED. PT LEFT ROOM VIA WHEELCHAIR WITH ANALYST COMPETITIVE INTELLIGENCE ESCORT AT 1744
== END 2019-11-25 17:44 | disposition hospice, home (50) | DRG 193 ==
LOC: ER 20:59 → MEDS 23:49 → PCU 23:49 → MEDS 11-21 14:30
PROVIDERS: Emergency Medicine; Family Medicine; Internal Medicine; Nurse Practitioner Acute Care; Pharmacist; ADMIT Internal Medicine
DX: J18.9 Pneumonia, unspecified organism (principal); J96.21 Acute and chronic respiratory failure with hypoxia; J86.9 Pyothorax without fistula; C34.91 Malignant neoplasm of unspecified part of right bronchus or lung; J91.0 Malignant pleural effusion; J44.1 Chronic obstructive pulmonary disease with (acute) exacerbation; J44.0 Chronic obstructive pulmonary disease with (acute) lower respiratory infection; F10.27 Alcohol dependence with alcohol-induced persisting dementia; Z66 Do not resuscitate; I10 Essential (primary) hypertension; E11.9 Type 2 diabetes mellitus without complications; R33.9 Retention of urine, unspecified; G40.909 Epilepsy, unspecified, not intractable, without status epilepticus; E78.5 Hyperlipidemia, unspecified; N40.0 Benign prostatic hyperplasia without lower urinary tract symptoms; F10.21 Alcohol dependence, in remission; C76.0 Malignant neoplasm of head, face and neck; Z87.891 Personal history of nicotine dependence; Z99.81 Dependence on supplemental oxygen
CPT/HCPCS: 0099U; 36415; 71045; 71046; 71260; 80048; 80053; 80202; 82947; 83605; 83735; 84100; 84145; 85025; 87040; 87070; 87075; 87186; 87205; 94640; 94760; 94762; 96365; 98960; 99284-25; A9270; A9270-GY; J0456; J0696; J2543; J3370; J7030; J7050; J7512; Q9967